=== PATIENT | male | born 1980 | race Caucasian/White ===

== ENCOUNTER 2025-01-19 23:45 | Inpatient (IN) | payer SELFPAY ==
[~2025-01-19] VITALS: Ht 167.6 cm; Wt 88.7 kg
[2025-01-19 23:47] VITALS: O2SAT 99
[2025-01-20 00:35] LABS: BASOPHILS % 0.9 % (0.0-2.0); EOSINOPHILS % 1.1 % (0.0-5.0); HEMATOCRIT. 40.3 % (42.0-52.0); HEMOGLOBIN. 13.5 g/dL (14.0-18.0); LYMPHOCYTES % 33.0 % (20.0-50.0); MEAN PLATELET VOLUME 7.3 fl (7.4-10.4); MONOCYTES % 6.1 % (2.0-8.0); NEUTROPHILS % 58.9 % (40.0-76.0); PLATELET 355 x1000/uL (130-400); RED BLOOD CELL COUNT 4.26 mill/uL (4.7-6.1); RED CELL DISTRIBUTION WIDTH 13.5 % (11.6-14.6)
[2025-01-20 00:49] LABS: CREATININE 0.8 mg/dL (0.6-1.3)
[2025-01-20 00:50] LABS: UREA NITROGEN BLOOD 8 mg/dL (9-23)
[2025-01-20 00:53] LABS: TROPONIN I HIGH SENSITIVITY 219 ng/L (3.0-53)
[2025-01-20] MEDS: ENOXAPARIN 80MG/0.8ML SYR SUBCUT ONE (03:10)
[2025-01-20 04:25] LABS: TROPONIN I HIGH SENSITIVITY 220 ng/L (3.0-53)
[2025-01-20] MEDS ORDERED: DOCUSATE SODIUM 100MG CAPSULE PO PRN (04:30)
[2025-01-20] MEDS ORDERED: ONDANSETRON HCL 4MG/2ML INJ IV PRN (04:30)
[2025-01-20] MEDS ORDERED: DEXTROSE 50% WATER 50ML SYRINGE IV PRN (04:30)
[2025-01-20] MEDS ORDERED: MAGNESIUM/ALUMINUM HYDROXIDE/SIMETHICONE 30ML UDC PO PRN (04:30)
[2025-01-20] MEDS ORDERED: GUAIFENESIN 200MG/10ML SUGAR FREE UDC PO PRN (04:30)
[2025-01-20] MEDS ORDERED: IPRATROPIUM/ALBUTEROL 0.5-3(2.5)MG/3ML NEB HHN PRN (04:30)
[2025-01-20] MEDS: POTASSIUM CHLORIDE 20MEQ TABLET SR PO NR (05:12)
[2025-01-20] MEDS: ASPIRIN 325MG EC TABLET PO NR (05:12)
[2025-01-20 05:40] VITALS: BP 160/109; PULSE 84; RESP 20; TEMP 36.7516
[2025-01-20 06:01] LABS: LDL CHOLESTEROL 93.0 mg/dL (5-100); TRIGLYCERIDE 95.0 mg/dL (0-150)
[2025-01-20 06:03] LABS: T4 FREE 1.23 ng/dL (0.89-1.76)
[2025-01-20 06:08] LABS: TROPONIN I HIGH SENSITIVITY 211.0 ng/L (3.0-53)
[2025-01-20 07:00] LABS: CLARITY URINE CLEAR (CLEAR); COLOR URINE YELLOW (YELLOW); GLUCOSE URINE TRACE (NEGATIVE); KETONES URINE NEGATIVE (NEGATIVE); LEUKOCYTE ESTERASE URINE NEGATIVE (NEGATIVE); NITRITE URINE NEGATIVE (NEGATIVE); OCCULT BLOOD URINE NEGATIVE (NEGATIVE); PH URINE 5.5 (4.5-8.0); PROTEIN URINE NEGATIVE (NEGATIVE); SPECIFIC GRAVITY URINE 1.013 (1.005-1.030); UROBILINOGEN URINE 0.2 E.U./dL (0.2-1.0)
[2025-01-20 08:00] VITALS: BP 156/109; PULSE 78; RESP 20; TEMP 36.6; O2SAT 97
[2025-01-20] MEDS: ASPIRIN 81MG TABLET PO SCH (08:35)
[2025-01-20] MEDS: CLOPIDOGREL 75MG TABLET PO SCH (08:35)
[2025-01-20] MEDS: ACETAMINOPHEN 325MG TABLET PO PRN (08:38)
[2025-01-20 08:39] LABS: *AMPHETAMINES SCREEN URINE NEGATIVE (NEGATIVE); *BARBITURATES SCREEN URINE NEGATIVE (NEGATIVE); *BENZODIAZEPINES SCREEN URINE NEGATIVE (NEGATIVE); *COCAINE SCREEN URINE NEGATIVE (NEGATIVE)
[2025-01-20 08:40] LABS: MUCUS URINE 1+ /lpf (NONE/TRACE); SQUAMOUS EPITHELIAL CELL URINE FEW /lpf (RARE/1+)
[2025-01-20 08:40] LABS: CANNABINOID URINE SCREEN NEGATIVE (NEGATIVE); ECSTASY MDMA SCREEN URINE NEGATIVE (NEGATIVE); METHADONE URINE SCREEN NEGATIVE (NEGATIVE); OPIATES URINE SCREEN NEGATIVE (NEGATIVE); PHENCYCLIDINE URINE SCREEN NEGATIVE (NEGATIVE)
[2025-01-20 08:41] LABS: WBC URINE 0-2 /hpf (0-2)
[2025-01-20 08:43] LABS: RBC URINE 0-2 /hpf (0-2)
[2025-01-20 08:44] LABS: BACTERIA URINE TRACE
[2025-01-20] MEDS ORDERED: ASPIRIN 81MG EC TABLET PO SCH (09:00)
[2025-01-20 12:00] VITALS: BP 179/127; PULSE 78; RESP 19; TEMP 36.4; O2SAT 99
[2025-01-20] MEDS: CLONIDINE 0.1MG TABLET PO PRN (12:54)
[2025-01-20 15:01] LABS: HEPATITIS C AB NON REACTIVE (Neg) (Negative)
[2025-01-20 16:00] VITALS: BP 150/111; PULSE 87; RESP 19; TEMP 36.6; O2SAT 98
[2025-01-20 16:32] LABS: INR 1.0
[2025-01-20 16:37] LABS: TROPONIN I HIGH SENSITIVITY 187 ng/L (3.0-53)
[2025-01-20 20:00] VITALS: BP 130/83; PULSE 82; RESP 19; TEMP 36.3; O2SAT 98
[2025-01-20] MEDS: ENOXAPARIN 80MG/0.8ML SYR SUBCUT SCH (21:44)
[2025-01-20] MEDS: ATORVASTATIN CALCIUM 40MG TABLET PO SCH (21:44)
[2025-01-20] MEDS: FAMOTIDINE 20MG TABLET PO SCH (21:44)
[2025-01-21] VITALS: BP 158/103; PULSE 74; RESP 19; TEMP 36.4; O2SAT 98
[2025-01-21] MEDS: AMLODIPINE 5MG TABLET PO NR (02:53)
[2025-01-21 04:00] VITALS: BP 140/99; PULSE 74; RESP 18; TEMP 36.2; O2SAT 95
[2025-01-21 06:19] LABS: BASOPHILS % 0.5 % (0.0-2.0); EOSINOPHILS % 1.0 % (0.0-5.0); HEMATOCRIT. 41.6 % (42.0-52.0); HEMOGLOBIN. 13.9 g/dL (14.0-18.0); LYMPHOCYTES % 32.0 % (20.0-50.0); MEAN PLATELET VOLUME 7.7 fl (7.4-10.4); MONOCYTES % 6.1 % (2.0-8.0); NEUTROPHILS % 60.4 % (40.0-76.0); PLATELET 351 x1000/uL (130-400); RED BLOOD CELL COUNT 4.41 mill/uL (4.7-6.1); RED CELL DISTRIBUTION WIDTH 13.5 % (11.6-14.6)
[2025-01-21 06:33] LABS: CREATININE 0.9 mg/dL (0.6-1.3); UREA NITROGEN BLOOD 9 mg/dL (9-23)
[2025-01-21 08:00] VITALS: BP 164/99; PULSE 69; RESP 18; TEMP 36.6; O2SAT 98
[2025-01-21] MEDS: CLONIDINE 0.2MG TABLET PO NR (09:59)
[2025-01-21] MEDS ORDERED: CLONIDINE 0.1MG TABLET PO PRN (10:00)
[2025-01-21 11:56] VITALS: BP 140/93; PULSE 72; RESP 18; TEMP 97.4
[2025-01-21 12:00] VITALS: BP 140/93; PULSE 72; RESP 18; TEMP 36.3; O2SAT 98
== END 2025-01-21 13:40 | DRG 203 ==
LOC: ER 23:45 → 6WST 01-20 03:23 → EDBEDREQ 01-20 04:20 → EDBEDREQTM 01-20 04:20 → ENRESERV 01-20 05:06 → 6WST 01-20 05:45
PROVIDERS: ADMIT Internal Medicine; ATTEND Internal Medicine
DX: M94.0 Chondrocostal junction syndrome [Tietze] (principal); I21.4 Non-ST elevation (NSTEMI) myocardial infarction; E66.9 Obesity, unspecified; R73.9 Hyperglycemia, unspecified; R03.0 Elevated blood-pressure reading, without diagnosis of hypertension; E78.5 Hyperlipidemia, unspecified; E87.6 Hypokalemia; F19.10 Other psychoactive substance abuse, uncomplicated; Z68.30 Body mass index [BMI] 30.0-30.9, adult; F15.10 Other stimulant abuse, uncomplicated
CPT/HCPCS: 36415; 71045; 80048; 80061; 80305; 81003; 82550; 83036; 84439; 84443; 84484; 85025; 85379; 86705; 87340; 93005; 99285; A4606; J1650